=== PATIENT | male | born 1970 | race Two or more races ===

== ENCOUNTER 2022-02-22 23:12 | Inpatient (IN) | payer MEDICAID ==
[~2022-02-22] VITALS: Ht 170.2 cm; Wt 69.2 kg
[2022-02-23 00:23] LABS: Albumin 4.1 g/dL (3.4-5.0); BUN/Creatinine Ratio 15.9; Basophils # (auto) 0 10 ^3/uL (0-0.2); Basophils % (auto) 0.1 % (0.0-2.0); Calcium 9.2 mg/dL (8.5-10.1); Eosinophils # (auto) 0.1 10 ^3/uL (0-0.8); Eosinophils % (auto) 0.5 % (0.0-7.0); Hematocrit 49.1 % (41.0-53.0); Hemoglobin 16.1 g/dL (13.5-17.5); Lymphocytes # (auto) 1.6 10 ^3/uL (0.4-5.4); Lymphocytes % (auto) 8.5 % (10.0-50.0); Mean Corpuscular Hemoglobin 29.2 pg (28.0-32.0); Mean Corpuscular Hgb Conc. 32.8 g/dL (32.0-36.0); Mean Corpuscular Volume 88.9 fL (80.0-100.0); Monocytes # (auto) 1.1 10 ^3/uL (0-1.3); Monocytes % (auto) 5.5 % (0.0-12.0); Neutrophils # (auto) 16.4 10 ^3/uL (1.6-8.6); Neutrophils % (auto) 85.4 % (37.0-80.0); Potassium 3.9 mmol/L (3.5-5.1); Red Blood Cells 5.52 10^6/uL (4.5-5.90); Red Cell Distribution Width 12.2 % (11.8-14.3); White Blood Cell 19.2 10^3/uL (4.4-10.8)
[2022-02-23 00:26] LABS: Bilirubin, Total 1.1 mg/dL (0.2-1.0); Total Protein 8.2 g/dL (6.4-8.2)
[2022-02-23 00:29] LABS: Urine Bacteria FEW /hpf (None Seen); Urine Blood Negative /uL (Negative); Urine Specific Gravity 1.021 (1.001-1.035); Urine Sperm PRESENT /hpf (None Seen); Urine WBC 1 /hpf (0 - 3)
[2022-02-23] MEDS ORDERED: OXYCODONE W/ ACETAMINOPHEN 5/325MG TABLET PO ONE (01:00)
[2022-02-23] MEDS ORDERED: DOCUSATE SOD 100 MG CAP PO PRN (06:00)
[2022-02-23] MEDS ORDERED: TEMAZEPAM 15 MG CAP PO PRN (06:00)
[2022-02-23] MEDS ORDERED: LORazepam 0.5 MG TAB PO PRN (06:00)
[2022-02-23] MEDS ORDERED: ACETAMINOPHEN 325 MG TAB PO PRN (06:00)
[2022-02-23] MEDS ORDERED: PIPERACILLIN-TAZOB 3.375GM 100 ML IV SCH (06:00)
[2022-02-23] MEDS ORDERED: ONDANSETRON HCL 4 MG/2 ML VIAL IV PRN ×2 (06:00→12:45)
[2022-02-23] MEDS: SODIUM CHLORIDE 0.9% 1,000 ML IV SCH ×2 (06:25→21:18)
[2022-02-23] MEDS: MORPHINE SULFATE INJ 2 MG/ml SYRG IV PRN ×2 (06:26→23:10)
[2022-02-23 10:52] LABS: INR 1.06 (0.9-1.15); Partial Thromboplastin Time 24.9 sec (24.6-33.4)
[2022-02-23] MEDS ORDERED: ceFAZolin 1GM/50ML 50 ML IV ONE (10:57)
[2022-02-23] MEDS ORDERED: fentaNYL CITRATE 100 MCG/2 ML VL ONE (11:14)
[2022-02-23] MEDS ORDERED: MEPERIDINE HCL (50 MG/ML) 1 ML VIAL ONE (11:14)
[2022-02-23] MEDS ORDERED: MIDAZOLAM HCL 2MG/2ML 2ml VIAL (1mg/ml) ONE (11:14)
[2022-02-23] MEDS ORDERED: DexAMETHasone SOD PHOS 10MG/1ML VIAL INJ ONE (11:15)
[2022-02-23] MEDS ORDERED: SODIUM CHLORIDE LOCK 10 ML ONE (11:15)
[2022-02-23] MEDS ORDERED: ROCURONIUM 10MG/ML 10ML VIAL IV ONE (11:15)
[2022-02-23] MEDS ORDERED: NEOSTIGMINE 1 MG/ML INJ (10mg/10ML VIAL) ONE (11:15)
[2022-02-23] MEDS ORDERED: GLYCOPYRROLATE 0.2 MG/ML 1ML VIAL ONE ×2 (11:15→11:18)
[2022-02-23] MEDS ORDERED: HYDROmorphone HCL 2 MG/ML VL/or syr IV PRN ×4 (11:30→13:45)
[2022-02-23] MEDS ORDERED: METOCLOPRAMIDE HCL 5MG/ml INJ 2ml VIAL IV PRN ×2 (11:30→13:45)
[2022-02-23] MEDS ORDERED: KETOROLAC TROMETH 30 MG/ML 1ML VIAL IV ONE ×2 (11:30→13:45)
[2022-02-23] MEDS ORDERED: HYDROmorphone HCL 2 MG/ML VL/or syr IV ONE ×2 (12:45→15:44)
[2022-02-23] MEDS: MORPHINE SULFATE 4 MG/ML SYR/VIAL IV PRN ×2 (13:15→13:58)
[2022-02-23] MEDS ORDERED: MORPHINE SULFATE 4 MG/ML SYR/VIAL IV PRN (13:45)
[2022-02-23] MEDS: HYDROmorphone HCL 2 MG/ML VL/or syr ONE ×2 (14:21→14:31)
[2022-02-23] MEDS ORDERED: SUCCINYLCHOLINE CHLORIDE 20 MG/ML 10ML VIAL IV ONE (15:00)
[2022-02-23 16:46] VITALS: BP 114/80
[2022-02-23 17:00] VITALS: BP 128/74
[2022-02-23] MEDS: D5W/SOD CHL 0.45%/KCL 20MEQ 1,000 ML IV SCH ×2 (21:05→23:15)
[2022-02-23] MEDS: metroNIDAZOLE 500MG/100ML 100 ML IV SCH ×2 (21:18→21:22)
[2022-02-23 21:53] VITALS: BP 118/70
[2022-02-23] MEDS: ceFAZolin 1GM/50ML 50 ML IV SCH (22:34)
[2022-02-24 05:00] VITALS: BP 110/65
[2022-02-24] MEDS: D5W/SOD CHL 0.45%/KCL 20MEQ 1,000 ML IV SCH ×2 (05:25→10:36)
[2022-02-24] MEDS: metroNIDAZOLE 500MG/100ML 100 ML IV SCH (05:34)
[2022-02-24] MEDS: MORPHINE SULFATE INJ 2 MG/ml SYRG IV PRN ×2 (05:34→20:36)
[2022-02-24 05:37] LABS: Basophils # (auto) 0 10 ^3/uL (0-0.2); Basophils % (auto) 0.2 % (0.0-2.0); Eosinophils # (auto) 0 10 ^3/uL (0-0.8); Hematocrit 43.1 % (41.0-53.0); Hemoglobin 13.9 g/dL (13.5-17.5); Lymphocytes # (auto) 1.2 10 ^3/uL (0.4-5.4); Lymphocytes % (auto) 10.5 % (10.0-50.0); Mean Corpuscular Hemoglobin 29.2 pg (28.0-32.0); Mean Corpuscular Hgb Conc. 32.3 g/dL (32.0-36.0); Mean Corpuscular Volume 90.2 fL (80.0-100.0); Monocytes # (auto) 0.9 10 ^3/uL (0-1.3); Monocytes % (auto) 7.9 % (0.0-12.0); Neutrophils % (auto) 81.4 % (37.0-80.0); Red Blood Cells 4.78 10^6/uL (4.5-5.90); Red Cell Distribution Width 12.6 % (11.8-14.3); White Blood Cell 11.1 10^3/uL (4.4-10.8)
[2022-02-24 05:49] LABS: Calcium 8.6 mg/dL (8.5-10.1); Potassium 4.7 mmol/L (3.5-5.1)
[2022-02-24 05:52] LABS: BUN/Creatinine Ratio 11.1; Bilirubin, Total 3.2 mg/dL (0.2-1.0)
[2022-02-24] MEDS: ceFAZolin 1GM/50ML 50 ML IV SCH (06:41)
[2022-02-24 08:00] VITALS: BP 108/70
[2022-02-24 08:47] VITALS: BP 102/65
[2022-02-24] MEDS ORDERED: PANTOPRAZOLE 40 MG/10 ML VIAL INJ IV SCH (10:00)
[2022-02-24 10:05] LABS: Albumin 3.4 g/dL (3.4-5.0)
[2022-02-24 10:09] LABS: Bilirubin, Direct 0.5 mg/dL (0-0.2); Bilirubin, Total 2.6 mg/dL (0.2-1.0)
[2022-02-24 13:00] VITALS: BP 108/68
[2022-02-24] MEDS ORDERED: SENNA 8.6 MG TAB PO PRN (15:00)
[2022-02-24] MEDS ORDERED: POLYETHYLENE GLYCOL 17 GM PWDR PO PRN (15:00)
[2022-02-24 16:51] VITALS: BP 118/77
[2022-02-24 22:00] VITALS: BP 96/60
[2022-02-24] MEDS ORDERED: SENNA 8.6 MG TAB PO SCH (22:00)
[2022-02-25 05:00] VITALS: BP 105/70
[2022-02-25 06:09] LABS: Basophils # (auto) 0 10 ^3/uL (0-0.2); Basophils % (auto) 0.3 % (0.0-2.0); Eosinophils # (auto) 0.1 10 ^3/uL (0-0.8); Eosinophils % (auto) 1.4 % (0.0-7.0); Hemoglobin 14.1 g/dL (13.5-17.5); Lymphocytes # (auto) 2.7 10 ^3/uL (0.4-5.4); Lymphocytes % (auto) 30.6 % (10.0-50.0); Mean Corpuscular Hemoglobin 29.5 pg (28.0-32.0); Mean Corpuscular Hgb Conc. 32.9 g/dL (32.0-36.0); Mean Corpuscular Volume 89.9 fL (80.0-100.0); Monocytes # (auto) 0.8 10 ^3/uL (0-1.3); Monocytes % (auto) 9.2 % (0.0-12.0); Neutrophils # (auto) 5.2 10 ^3/uL (1.6-8.6); Neutrophils % (auto) 58.5 % (37.0-80.0); Nucleated Red Blood Cells % 0.1 %; Red Blood Cells 4.78 10^6/uL (4.5-5.90); Red Cell Distribution Width 12.2 % (11.8-14.3); White Blood Cell 8.8 10^3/uL (4.4-10.8)
[2022-02-25 06:28] LABS: Albumin 3.6 g/dL (3.4-5.0); Calcium 8.9 mg/dL (8.5-10.1); Potassium 4.3 mmol/L (3.5-5.1)
[2022-02-25 06:33] LABS: BUN/Creatinine Ratio 17.4; Bilirubin, Total 1.3 mg/dL (0.2-1.0); Total Protein 6.8 g/dL (6.4-8.2)
[2022-02-25 08:00] VITALS: BP 128/62
[2022-02-25 09:00] VITALS: BP 107/68
[2022-02-25 13:00] VITALS: BP 128/62
[2022-02-25 13:25] VITALS: BP 107/68
== END 2022-02-25 15:01 | disposition home health service (06) | DRG 263 ==
LOC: ER 23:12 → EDUNIT# 23:12 → EDBD 23:12 → OVERFLOW 02-23 05:47 → EAST 02-23 15:11
PROVIDERS: ADMIT Hospitalist; ATTEND Student in an Organized Health Care Education/Training Program
PROC: 0FT44ZZ Resection of Gallbladder, Percutaneous Endoscopic Approach (ICD-10-PCS; principal; 2022-02-23 11:29)
DX: K80.00 Calculus of gallbladder with acute cholecystitis without obstruction (principal); K40.90 Unilateral inguinal hernia, without obstruction or gangrene, not specified as recurrent; R74.8 Abnormal levels of other serum enzymes; Z20.822 Contact with and (suspected) exposure to COVID-19; Z87.442 Personal history of urinary calculi
CPT/HCPCS: 36415; 71045; 74176; 80048; 80053; 80076; 81001; 82247; 83690; 85025; 85610; 85730; 86850; 86900; 86901; 87426; 93005; 96365; 96375; C9113; G0378; J0330; J0690; J1100; J2250; J2405; J2543; J3490

== ENCOUNTER 2022-04-06 18:20 | Inpatient (IN) | payer MEDICAID ==
[~2022-04-06] VITALS: Ht 162.6 cm; Wt 96.7 kg
[2022-04-06] MEDS ORDERED: IOHEXOL 350 MG/ML 100ML IJ ONE (20:44)
[2022-04-06] MEDS ORDERED: HYDROmorphone HCL 2 MG/ML VL/or syr IV ONE (20:45)
[2022-04-06] MEDS ORDERED: SODIUM CHLORIDE 0.9% 1,000 ML IV ONE (20:45)
[2022-04-06] MEDS ORDERED: METOCLOPRAMIDE HCL 5MG/ml INJ 2ml VIAL IV ONE (20:45)
[2022-04-06 21:36] LABS: Basophils # (auto) 0 10 ^3/uL (0-0.2); Basophils % (auto) 0.3 % (0.0-2.0); Eosinophils # (auto) 0 10 ^3/uL (0-0.8); Eosinophils % (auto) 0.1 % (0.0-7.0); Hematocrit 44.8 % (41.0-53.0); Hemoglobin 15.2 g/dL (13.5-17.5); Lymphocytes # (auto) 1.3 10 ^3/uL (0.4-5.4); Lymphocytes % (auto) 12.2 % (10.0-50.0); Mean Corpuscular Hgb Conc. 33.9 g/dL (32.0-36.0); Mean Corpuscular Volume 88.5 fL (80.0-100.0); Monocytes # (auto) 0.5 10 ^3/uL (0-1.3); Monocytes % (auto) 4.8 % (0.0-12.0); Neutrophils % (auto) 82.6 % (37.0-80.0); Red Blood Cells 5.06 10^6/uL (4.5-5.90); Red Cell Distribution Width 12.5 % (11.8-14.3); White Blood Cell 10.9 10^3/uL (4.4-10.8)
[2022-04-06 21:56] LABS: Calcium 8.6 mg/dL (8.5-10.1); Magnesium 2.3 mg/dL (1.6-2.6); Potassium 3.9 mmol/L (3.5-5.1)
[2022-04-06 21:59] LABS: Albumin 3.8 g/dL (3.4-5.0); BUN/Creatinine Ratio 18.7
[2022-04-06 22:01] LABS: Bilirubin, Total 1.1 mg/dL (0.2-1.0); Total Protein 7.3 g/dL (6.4-8.2)
[2022-04-06] MEDS ORDERED: metroNIDAZOLE 500MG/100ML 100 ML IV ONE (22:45)
[2022-04-06] MEDS ORDERED: cefTRIAXone 1GM/50ML D5W 50 ML IV ONE (22:45)
[2022-04-06] MEDS ORDERED: MORPHINE SULFATE INJ 2 MG/ml SYRG IV PRN (23:00)
[2022-04-06] MEDS ORDERED: SODIUM CHLORIDE 0.9% 2,000 ML IV ONE (23:00)
[2022-04-06] MEDS ORDERED: ACETAMINOPHEN 325 MG TAB PO PRN (23:00)
[2022-04-06] MEDS ORDERED: VANCOMYCIN PER PHARMACY 0 MG IV SCH (23:00)
[2022-04-06] MEDS ORDERED: ONDANSETRON HCL 4 MG/2 ML VIAL IV PRN (23:15)
[2022-04-06] MEDS ORDERED: VANCOMYCIN 1GM/250ML 250 ML IV ONE (23:15)
[2022-04-06 23:24] LABS: INR 1.09 (0.9-1.15); Partial Thromboplastin Time 27.6 sec (24.6-33.4)
[2022-04-07] MEDS: LACTATED RINGER'S 1,000 ML IV SCH ×3 (04:41→21:28)
[2022-04-07 07:14] LABS: Basophils # (auto) 0 10 ^3/uL (0-0.2); Basophils % (auto) 0.5 % (0.0-2.0); Eosinophils # (auto) 0.2 10 ^3/uL (0-0.8); Eosinophils % (auto) 2.4 % (0.0-7.0); Hematocrit 43.1 % (41.0-53.0); Hemoglobin 14.5 g/dL (13.5-17.5); Lymphocytes # (auto) 2.6 10 ^3/uL (0.4-5.4); Lymphocytes % (auto) 34.1 % (10.0-50.0); Mean Corpuscular Hgb Conc. 33.6 g/dL (32.0-36.0); Mean Corpuscular Volume 89.1 fL (80.0-100.0); Monocytes # (auto) 0.7 10 ^3/uL (0-1.3); Monocytes % (auto) 9.7 % (0.0-12.0); Neutrophils % (auto) 53.3 % (37.0-80.0); Nucleated Red Blood Cells % 0.1 %; Red Blood Cells 4.83 10^6/uL (4.5-5.90); Red Cell Distribution Width 12.4 % (11.8-14.3); White Blood Cell 7.5 10^3/uL (4.4-10.8)
[2022-04-07 07:30] LABS: Albumin 3.7 g/dL (3.4-5.0); BUN/Creatinine Ratio 19.7; Calcium 8.7 mg/dL (8.5-10.1); Potassium 3.8 mmol/L (3.5-5.1)
[2022-04-07 07:34] LABS: Bilirubin, Total 1.5 mg/dL (0.2-1.0); Total Protein 6.9 g/dL (6.4-8.2)
[2022-04-07] MEDS: PIPERACILLIN-TAZOB 3.375GM 100 ML IV SCH ×3 (08:43→23:16)
[2022-04-07] MEDS: PANTOPRAZOLE 40 MG/10 ML VIAL INJ IV SCH (11:46)
[2022-04-07] MEDS: HYDROcodone-ACET 5/325MG TAB PO PRN ×2 (12:18→23:27)
[2022-04-07] MEDS ORDERED: MORPHINE SULFATE 4 MG/ML SYR/VIAL IV PRN (13:15)
[2022-04-07] MEDS ORDERED: VANCOMYCIN 1GM/250ML 250 ML IV ONE (13:45)
[2022-04-07 15:00] VITALS: BP 119/82
[2022-04-07] MEDS ORDERED: ACET250T3 PO (16:35)
[2022-04-07] MEDS ORDERED: ACET-1156 PO (16:36)
[2022-04-07 16:58] VITALS: BP 119/82
[2022-04-07 20:00] VITALS: BP 109/60
[2022-04-07] MEDS: VANCOMYCIN 1GM/250ML 250 ML IV SCH (21:32)
[2022-04-07 22:00] VITALS: BP 109/60
[2022-04-08 05:00] VITALS: BP 111/78
[2022-04-08] MEDS: LACTATED RINGER'S 1,000 ML IV SCH ×2 (05:00→16:53)
[2022-04-08] MEDS: VANCOMYCIN 1GM/250ML 250 ML IV SCH ×3 (06:00→21:03)
[2022-04-08 06:31] LABS: Basophils # (auto) 0 10 ^3/uL (0-0.2); Basophils % (auto) 0.4 % (0.0-2.0); Eosinophils # (auto) 0.2 10 ^3/uL (0-0.8); Eosinophils % (auto) 1.9 % (0.0-7.0); Hematocrit 48.1 % (41.0-53.0); Hemoglobin 15.4 g/dL (13.5-17.5); Lymphocytes # (auto) 1.8 10 ^3/uL (0.4-5.4); Lymphocytes % (auto) 16.7 % (10.0-50.0); Mean Corpuscular Hemoglobin 29.4 pg (28.0-32.0); Mean Corpuscular Volume 91.9 fL (80.0-100.0); Monocytes # (auto) 0.8 10 ^3/uL (0-1.3); Monocytes % (auto) 7.9 % (0.0-12.0); Neutrophils # (auto) 7.7 10 ^3/uL (1.6-8.6); Neutrophils % (auto) 73.1 % (37.0-80.0); Nucleated Red Blood Cells % 0.1 %; Red Blood Cells 5.23 10^6/uL (4.5-5.90); Red Cell Distribution Width 12.5 % (11.8-14.3); White Blood Cell 10.6 10^3/uL (4.4-10.8)
[2022-04-08 06:47] LABS: BUN/Creatinine Ratio 11.4; Calcium 9.2 mg/dL (8.5-10.1); Potassium 4.2 mmol/L (3.5-5.1)
[2022-04-08 08:00] VITALS: BP 104/69
[2022-04-08] MEDS: PIPERACILLIN-TAZOB 3.375GM 100 ML IV SCH ×3 (08:50→23:28)
[2022-04-08] MEDS: PANTOPRAZOLE 40 MG/10 ML VIAL INJ IV SCH (08:51)
[2022-04-08 09:27] VITALS: BP 104/69
[2022-04-08 14:09] VITALS: BP 112/62
[2022-04-08] MEDS ORDERED: VANCOMYCIN 1GM/250ML 250 ML IV SCH (19:00)
[2022-04-08 22:06] VITALS: BP 119/74
[2022-04-09] MEDS: LACTATED RINGER'S 1,000 ML IV SCH (01:00)
[2022-04-09 05:05] VITALS: BP 114/64
[2022-04-09] MEDS: VANCOMYCIN 1GM/250ML 250 ML IV SCH (06:28)
[2022-04-09] MEDS: PANTOPRAZOLE 40 MG/10 ML VIAL INJ IV SCH (09:03)
[2022-04-09] MEDS: PIPERACILLIN-TAZOB 3.375GM 100 ML IV SCH (09:03)
[2022-04-09] MEDS ORDERED: METR500T PO (11:19)
[2022-04-09] MEDS ORDERED: LEVO500T31 PO (11:19)
[2022-04-09] MEDS ORDERED: HYDR-4902 PO (11:19)
[2022-04-09 11:38] VITALS: BP 121/89
[2022-04-09 13:05] VITALS: BP 122/89
== END 2022-04-09 14:05 | disposition home or self-care (01) | DRG 252 ==
LOC: EDBD 18:20 → ER 18:20 → OVERFLOW 22:58 → WEST WING 04-07 14:58
PROVIDERS: ADMIT Registered Nurse; ATTEND Family Medicine
DX: K91.89 Other postprocedural complications and disorders of digestive system (principal); A41.9 Sepsis, unspecified organism; E66.01 Morbid (severe) obesity due to excess calories; E86.0 Dehydration; Y83.8 Other surgical procedures as the cause of abnormal reaction of the patient, or of later complication, without mention of misadventure at the time of the procedure; Z20.822 Contact with and (suspected) exposure to COVID-19; K40.90 Unilateral inguinal hernia, without obstruction or gangrene, not specified as recurrent; Z87.442 Personal history of urinary calculi; Z90.49 Acquired absence of other specified parts of digestive tract; Z68.36 Body mass index [BMI] 36.0-36.9, adult
CPT/HCPCS: 36415; 71046; 74177; 74181; 76705; 80048; 80053; 80202; 82565; 83605; 83690; 83735; 85025; 85610; 85730; 87040; 87081; 87426; 93005; 96361; 96365; 96368; 96375; C9113; G0378; J0696; J2543; J3490